=== PATIENT | male | born 1960 | race Hispanic/Latino ===

== ENCOUNTER → 2022-10-02 | Outpatient (CLI) | payer BC, MEDICARE, OTHER, SELFPAY ==
[~2022-10-02] MED LIST: IOHEXOL-350 50ML VIAL IV ONE
== END | disposition home or self-care (01) ==
LOC: RAH 08:49
PROVIDERS: ATTEND Internal Medicine Cardiovascular Disease
DX: I25.119 Atherosclerotic heart disease of native coronary artery with unspecified angina pectoris (principal)
CPT/HCPCS: 75574; Q9967